=== PATIENT | female | born 1980 | race Caucasian/White ===

== ENCOUNTER 2018-11-02 12:02 | Emergency (ER) | payer OTHER ==
[~2018-11-02] VITALS: Ht 170.2 cm; Wt 90.7 kg
[~2018-11-02 12:02] MED LIST: NORCO 5-325 TA1 EACH PO; PRENATABS RX T1 EACH PO; TYLENOL325 MG PO
[2018-11-02] MEDS ORDERED: VENTOLIN HFA18 GM INH (13:52)
[2018-11-02] MEDS ORDERED: ZITHROMAX250 MG PO (13:52)
== END 2018-11-02 14:05 | disposition home or self-care (01) ==
LOC: ED 12:02
DX: J03.90 Acute tonsillitis, unspecified (principal); J45.909 Unspecified asthma, uncomplicated; F17.200 Nicotine dependence, unspecified, uncomplicated; Z88.0 Allergy status to penicillin
CPT/HCPCS: 99283

== ENCOUNTER 2019-09-26 18:53 | Emergency (ER) | payer OTHER ==
[~2019-09-26] VITALS: Ht 170.2 cm; Wt 90.7 kg
[~2019-09-26 18:53] MED LIST changes: +VENTOLIN HFA18 GM INH; +ZITHROMAX250 MG PO
--- OUTSIDE RECORDS SUMMARY | 2019-09-26 18:56 | XMS ---
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 Care History Medical/Surgical 11/06/2018 [facility] - CHW CONTACTED PCP OFFICE ON 11/06/18- PATIENT HAS NOT BEEN IN CONTACT WITH PCP OFFICE SINCE 09/22/18. - PLEASE CONTACT [facility] MEDICATIONS BEFORE PRESCRIBING REFILL MEDICATIONS. - CHW IS UNABLE TO CONTACT PATIENT DUE TO PHONE NUMBER BEING DISCONNECTED. - Patient is currently established with [facility]. If patient is seen in the ED during business hours. Please contact CHWs at [facility]. Care Recommendation: This patient has had 5 or more Emergency Department visits in the last 12 months.\T\nbsp; Patient requires education on the scope and purpose of the ED as an acute care provider not a Primary Care Provider and should not be utilized for chronic conditions.\T\nbsp; These are guidelines and the provider should exercise clinical judgment when providing care. E.D. VISIT COUNT (12 MO.) 2 [facility] Butt TOTAL 2 NOTE: Visits indicate total known visits. ED/UCC VISIT TRACKING (12 MO.) 09/26/2019 18:54 [facility] Tirado [place] TYPE: Emergency COMPLAINT: - MEDICAL CLEARANCE 11/02/2018 12:02 [facility] [place] TYPE: Emergency COMPLAINT: - DIZZNESS/NAUSEA DIAGNOSES: - Unspecified asthma, uncomplicated - Cough - Allergy status to penicillin - Nicotine dependence, unspecified, uncomplicated - Acute tonsillitis, unspecified INPATIENT VISIT TRACKING (12 MO.) No inpatient visits to display in this time frame [email or web address]
[2019-09-26] MEDS ORDERED: LORATADINE10 MG PO (21:45)
[2019-09-26] MEDS ORDERED: DULOXETINE HCL60 MG PO (21:45)
[2019-09-26] MEDS ORDERED: VITAMIN D310000 UNI1 PO (21:46)
[2019-09-26] MEDS ORDERED: MELOXICAM7.5 MG PO (21:47)
[2019-09-26] MEDS ORDERED: LATUDA40 MG PO (21:49)
[2019-09-26] MEDS ORDERED: HYDROXYZINE HCL50 MG PO (21:52)
[2019-09-26] MEDS ORDERED: CYCLOBENZAPRINE10 MG PO (21:52)
== END 2019-09-27 10:46 | disposition home or self-care (01) ==
LOC: ED 18:53
DX: F43.10 Post-traumatic stress disorder, unspecified (principal); J45.909 Unspecified asthma, uncomplicated; F41.9 Anxiety disorder, unspecified; F32.9 Major depressive disorder, single episode, unspecified; Z88.0 Allergy status to penicillin; Z79.899 Other long term (current) drug therapy
CPT/HCPCS: 80053; 80176; 81001; 84443; 84703; 85025; 99284; G0480

== ENCOUNTER 2019-10-16 16:05 | Emergency (ER) | payer OTHER ==
[~2019-10-16] VITALS: Ht 170.2 cm; Wt 81.7 kg
[~2019-10-16 16:05] MED LIST changes: +CYCLOBENZAPRINE10 MG PO; +DULOXETINE HCL60 MG PO; +HYDROXYZINE HCL50 MG PO; +LATUDA40 MG PO; +LORATADINE10 MG PO; +MELOXICAM7.5 MG PO; +VITAMIN D310000 UNI1 PO
--- OUTSIDE RECORDS SUMMARY | 2019-10-16 16:08 | XMS ---
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 No recent Security Events currently on file CRITERIA MET - [facility] - Has Care Guidelines - [facility] - 2 Visits in 30 Days CARE PROVIDERS REY COPE Physician Wind Technician 09/28/2019-Current CADE PHONE: [phone] MARIA DE JESUS GRUBBS Nurse Practitioner: Women's Health 11/06/2018-Current PHONE: [phone] Guidelines Source: [facility] [facility] Guidelines Date: 10/12/2019 Care Coordination: Currently engaged in mental health services with [employer].\T\nbsp; Please contact [employer] with mental health concerns.\T\nbsp; [place]: [phone]\T\nbsp; [place]: [phone]. Care History Medical/Surgical 11/06/2018 [facility] - CHW CONTACTED PCP OFFICE ON 11/06/18- PATIENT HAS NOT BEEN IN CONTACT WITH PCP OFFICE SINCE 09/22/18. - P[facility] CONTACT [facility] MEDICATIONS BEFORE PRESCRIBING REFILL MEDICATIONS. - CHW IS UNABLE TO CONTACT PATIENT DUE TO PHONE NUMBER BEING DISCONNECTED. - Patient is currently established with [facility]. If patient is seen in the ED during business hours. Please contact CHWs at [facility]. Care Recommendation: This patient has had 5 [...] providing care. E.D. VISIT COUNT (12 MO.) 3 [facility]. TOTAL 3 NOTE: Visits indicate total known visits. 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
== END 2019-10-16 18:59 | disposition short-term general hospital (02) ==
LOC: ED 16:05
DX: F43.10 Post-traumatic stress disorder, unspecified (principal); J45.909 Unspecified asthma, uncomplicated; F41.9 Anxiety disorder, unspecified; D32.9 Benign neoplasm of meninges, unspecified
CPT/HCPCS: 80053; 81001; 84443; 85025; 99285

== ENCOUNTER 2021-06-15 07:25 | Emergency (ER) | payer OTHER ==
[~2021-06-15] VITALS: Ht 170.2 cm; Wt 145.0 kg
[2021-06-15] MEDS ORDERED: BACTRIM DS TAB1 EACH PO (10:13)
[2021-06-15] MEDS ORDERED: METRONIDAZOLE500 MG PO (10:13)
[2021-06-15] MEDS ORDERED: DOXYCYCLINE HY100 MG PO (10:17)
--- NOTE | 2021-06-16 15:07 | EKG ---
[facility] [address] [facility] [place], [place] [address] Signed Normal sinus rhythm Normal ECG No previous ECGs available Confirmed by LYNDA RONQUILLO DO ([id number]) on 06/16/2021 3:07:07 PM Electronically Signed By: LYNDA RONQUILLO DO 06/16/21 1507 PATIENT NAME: ALAN DIAZ Electrocardiogram DATE OF : 80 PHYSICIAN: LYNDA RONQUILLO DO REPORT #: [id number] REPORT IS CONFIDENTIAL AND NOT TO BE RELEASED WITHOUT AUTHORIZATION
== END 2021-06-15 11:13 | disposition home or self-care (01) ==
LOC: ED 07:25
DX: N76.0 Acute vaginitis (principal); N39.0 Urinary tract infection, site not specified; R07.9 Chest pain, unspecified; J45.909 Unspecified asthma, uncomplicated; F43.10 Post-traumatic stress disorder, unspecified; Z88.0 Allergy status to penicillin
CPT/HCPCS: 71046; 76830; 76856; 80053; 81001; 83690; 83735; 84484; 84703; 85025; 87210; 87491; 93005; 93010; 96372; 99285-25; A9270; J0696

== ENCOUNTER 2022-06-10 11:47 | Emergency (ER) | payer OTHER ==
[~2022-06-10] VITALS: Ht 170.2 cm; Wt 79.4 kg
[~2022-06-10 11:47] MED LIST changes: +BACTRIM DS TAB1 EACH PO; +DOXYCYCLINE HY100 MG PO; +METRONIDAZOLE500 MG PO
[2022-06-10] MEDS ORDERED: VENTOLIN HFA18 GM INH (15:12)
--- NOTE | 2022-06-13 20:52 | EKG ---
[facility] [address] [place] [address] Signed Normal sinus rhythm Normal ECG When compared with ECG of 15-JUN-2021 08:22, Questionable change in QRS axis T wave inversion no longer evident in Inferior leads Confirmed by Maxwell Rosario MD () on 06/13/2022 8:52:42 PM Electronically Signed By: MAXWELL ROSARIO MD 06/13/222051 PATIENT NAME: ALAN DIAZ Electrocardiogram DATE OF : 80 PHYSICIAN: MAXWELL ROSARIO MD REPORT #: [id number] REPORT IS CONFIDENTIAL AND NOT TO BE RELEASED WITHOUT AUTHORIZATION
== END 2022-06-12 01:18 | disposition short-term general hospital (02) ==
LOC: ED 11:47
DX: T14.91XA Suicide attempt, initial encounter (principal); F15.10 Other stimulant abuse, uncomplicated; Z20.822 Contact with and (suspected) exposure to COVID-19
CPT/HCPCS: 36415; 72170; 80053; 81001; 84443; 84703; 85025; 87077; 87088; 87186; 87502; 93005; 93010; 96372; 99285-25; C9803; G0480; J1630; J2060; U0003

== ENCOUNTER 2022-09-20 08:41 | Emergency (ER) | payer OTHER ==
[~2022-09-20] VITALS: Ht 170.2 cm; Wt 59.2 kg
[2022-09-20] MEDS ORDERED: IBU600 MG PO (09:06)
[2022-09-20] MEDS ORDERED: ZITHROMAX250 MG PO (09:06)
== END 2022-09-20 09:44 | disposition home or self-care (01) ==
LOC: ED 08:41
DX: K02.9 Dental caries, unspecified (principal); K03.81 Cracked tooth; J45.909 Unspecified asthma, uncomplicated; Z88.0 Allergy status to penicillin; Z79.899 Other long term (current) drug therapy
CPT/HCPCS: 99282; A9270

== ENCOUNTER 2022-11-15 06:03 | Emergency (ER) | payer OTHER ==
[~2022-11-15] VITALS: Ht 170.2 cm; Wt 68.1 kg
[~2022-11-15 06:03] MED LIST changes: +IBU600 MG PO
[2022-11-15] MEDS ORDERED: IBU800 MG PO (07:11)
[2022-11-15] MEDS ORDERED: VENTOLIN HFA18 GM INH (07:11)
[2022-11-15] MEDS ORDERED: CLEOCIN HCL300 MG PO (07:11)
--- NOTE | 2022-11-16 18:51 | EKG ---
[facility] [address] [facility] [place], [place] [address] Signed Normal sinus rhythm Normal ECG When compared with ECG of 11-JUN-2022 14:41, No significant change was found Confirmed by KAREL MEDINA MD ([id number]) on 11/16/2022 6:51:49 PM Electronically Signed By: KAREL MEDINA MD 11/16/221850 PATIENT NAME: ALAN DIAZ Electrocardiogram DATE OF : 80 PHYSICIAN: KAREL MEDINA MD REPORT #: [id number] REPORT IS CONFIDENTIAL AND NOT TO BE RELEASED WITHOUT AUTHORIZATION
== END 2022-11-15 07:36 | disposition home or self-care (01) ==
LOC: ED 06:03
DX: K04.7 Periapical abscess without sinus (principal); F15.10 Other stimulant abuse, uncomplicated; J45.909 Unspecified asthma, uncomplicated; Z59.00 Homelessness unspecified; Z88.0 Allergy status to penicillin; Z79.899 Other long term (current) drug therapy; Z20.822 Contact with and (suspected) exposure to COVID-19
CPT/HCPCS: 36415; 71045; 80053; 83880; 84484; 84703; 85025; 85379; 87502; 93005; 93010; 99284-25; A9270; J7121; U0003

== ENCOUNTER 2023-08-14 21:36 | Observation (INO) | payer OTHER ==
[~2023-08-14] VITALS: Ht 170.2 cm; Wt 60.7 kg
[~2023-08-14 21:36] MED LIST changes: +CLEOCIN HCL300 MG PO; +IBU800 MG PO
[2023-08-14 22:10] LABS: BASOPHILS 0.5 % (0-2); EOSINOPHILS 0.1 % (0-6); HEMATOCRIT 32.2 % (35.0-50.0); HEMOGLOBIN 11.1 g/dL (12.0-18.0); LYMPHOCYTES 10.4 % (24-44); MCH 30.4 (27-36); MCHC 34.3 g/dl (30-36); MCV 88.4 fl (81-99); MONOCYTES 9.3 % (0-12); NEUTROPHILS 79.7 % (39-80); PLATELET COUNT 319 K/uL (140-440); RBC 3.64 M/ul (4.3-5.7); RDW 13.4 (10.5-15.0)
[2023-08-14 22:38] LABS: ALBUMIN 4.9 g/dL (3.4-5.0); ALBUMIN/GLOBULIN RATIO 1.58 (1.1-2.4); ALCOHOL, MEDICAL <3 ng/dL (<3); ALKALINE PHOSPHATASE 63 U/L (46-116); ALT (SGPT) 47 U/L (14-59); ANION GAP 18.3 (7-21); AST (SGOT) 62 U/L (15-37); BILIRUBIN, TOTAL 3.7 ng/dL (0.2-1.0); BUN/CREATININE RATIO 34.61 (6.0-28.6); CALCIUM 9.4 mg/dL (8.5-10.1); CARBON DIOXIDE 26 mmol/L (21-32); CHLORIDE 100 mmol/L (98-107); CREATINE KINASE 1511 U/L (26-192); GLOMERULAR FILTRATION RATE,EST 55 mL/min (>60); POTASSIUM 4.3 mmol/L (3.5-5.1); UREA NITROGEN 45 mg/dL (7-18)
[2023-08-14 22:47] LABS: INFLUENZA B NAA NEGATIVE (NEGATIVE); RESPIRATORY SYNCYTIAL VIR NAA NEGATIVE (NEGATIVE)
--- NOTE | 2023-08-14 23:48 | NUR ---
PATIENT ARRIVED VIA WHEELCHAIR WITH SECURITY AND RODO REEVES E.D. TO ROOM 127, PT IS ALERT, VERY RESTLESS, ANXIOUS, PATIENT TRANSFER TO BED WITH STANDBY ASSIST, PATIENT NOTED TO HAVE POOR COORDINATION. SHE VERBALIZES THAT SHE IS COLD, WARM BLANKETS PROVIDED, SHE VERBALIZED WANTING TO USE THE PHONE, HOWEVER SHE DOES NOT KNOW THE NUMBER TO CALL. SHE VERBALIZED NOT NEEDING TO URINATE AT THIS TIME. SECOND FLUID BOLUS INFUSING NOW FROM E.D., PATIENT VERBALIZED HUNGER, WILL PROVIDE PATIENT WITH FOOD
[2023-08-14 23:59] VITALS: BP 112/83
--- NOTE | 2023-08-15 00:04 | NUR ---
PATIENT HISTORY NOT COMPLETED PATIENT IS A POOR HISTORIAN AT THIS TIME.
--- NOTE | 2023-08-15 00:30 | NUR ---
PATIENT HAS CONSUMED FRUIT, OATMEAL AND SANDWICH BOX. SHE HAS DRANK SPRITE AND HAS WATER AT BEDSIDE, PROVIDED CHAP STICK AND WARM WASH CLOTH. SHE REPORTS NO NAUSEA AT THIS TIME.
--- NOTE | 2023-08-15 01:00 | NUR ---
PATIENT EXITED BED SETTING BED ALARM OFF, STAFF INTO ROOM, PATIENT STQANDING AT BEDSIDE. SHE REPORTS NEED TO URINATE. PT ASSISTED ONE PERSON TO BATHROOM, HAT IN TOILET TO CATCH URINE FOR LAB, PT VOIDED, AND MISSED HAT. SHE REQUIRES MULTIPLE INSTRUCTIONS TO BE DIRECTED FOR TASKS, PATIENT PROVIDED [facility] PANTS, UNDERWARE, AND SOCKS. SHE CONTINUES TO NEED REASSURANCE OF SAFETY AND CARE PLAN. SHE CONTINUES TALK QUIETLY TO HERSELF, NOTED TO BE FORGETFUL, ASKING SAME QUESTION IN SHORT SPANS OF TIME. SHE IS COOPERATIVE WITH CARES AND STAFF AT THIS TIME.
--- NOTE | 2023-08-15 02:05 | NUR ---
PATIENT RESTING QUIETLY IN BED, EYES CLOSED RESPIRATION 16/MIN, NO DISTRESS NOTED, SNORING NOTED.
[2023-08-15 05:16] VITALS: BP 103/74
--- NOTE | 2023-08-15 05:17 | NUR ---
PATIENT ALERT TO VOICE OF STAFF AT BEDSIDE AFTER SEVERAL ATTEMPTS PATIENT OPENED HER EYES, WHEN ASKED IF SHE REMEBERS THIS RN SHE NODDED HER HEAD YES, ASSESSMENT, V/S AND LAB INTO ROOM FOR LAB DRAW. NO NEW CONCERNS, PATIENT COOPERATIVE WITH CARES.
[2023-08-15 05:22] LABS: HEMOGLOBIN 9.6 g/dL (12.0-18.0); MCH 30.7 (27-36)
[2023-08-15 05:25] LABS: BASOPHILS 0.8 % (0-2); EOSINOPHILS 0.7 % (0-6); HEMATOCRIT 27.6 % (35.0-50.0); LYMPHOCYTES 24.7 % (24-44); MCHC 34.7 g/dl (30-36); MCV 88.5 fl (81-99); MONOCYTES 12.3 % (0-12); NEUTROPHILS 61.5 % (39-80); PLATELET COUNT 248 K/uL (140-440); RBC 3.13 M/ul (4.3-5.7); RDW 13.5 (10.5-15.0)
[2023-08-15 05:39] LABS: ALBUMIN 3.4 g/dL (3.4-5.0); ALBUMIN/GLOBULIN RATIO 1.42 (1.1-2.4); ANION GAP 11.5 (7-21); BILIRUBIN, TOTAL 2.7 ng/dL (0.2-1.0); BUN/CREATININE RATIO 30.09 (6.0-28.6); CALCIUM 8.1 mg/dL (8.5-10.1); CREATININE, SERUM 1.03 mg/dL (0.55-1.02); MAGNESIUM 2.1 mg/dL (1.8-2.4); POTASSIUM 3.5 mmol/L (3.5-5.1); PROTEIN, TOTAL 5.8 g/dL (6.4-8.2)
--- NOTE | 2023-08-15 07:15 | NUR ---
REPORT TO JAYLAN REEVES MED/SURG FOR PATIENT TRANSFER OF CARE. PT ALERT AND ORIENTED. BEDSIDE REPORT. PT UP TO BATHROOM IN ROOM 119, HAD BM FORMED, ALSO VOIDED 900ML, URINE SENT TO LAB. PATIENT CONTINUES TO BE EMOTIONALLY LABILE.
--- NOTE | 2023-08-15 07:20 | NUR ---
REPORT FROM SPENCER, CCU NURSE, UPON PATIENT TRANSFER TO MED SURG.
[2023-08-15 07:28] LABS: BILIRUBIN, URINE NEGATIVE (negative); BLOOD/HGB, URINE NEGATIVE (Negative); KETONE, URINE NEGATIVE (Negative); LEUK ESTERASE, URINE NEGATIVE (negative); NITRITE, URINE NEGATIVE (negative)
[2023-08-15 08:36] LABS: AMPHETAMINES, URINE POSITIVE (NEGATIVE); BARBITURATES, URINE NEGATIVE (NEGATIVE); BENZODIAZEPINE, URINE NEGATIVE (NEGATIVE); BUPRENORPHINE, URINE NEGATIVE (NEGATIVE); CANNABINOID, URINE NEGATIVE (NEGATIVE); COCAINE, URINE NEGATIVE (NEGATIVE); ECSTASY, URINE NEGATIVE (NEGATIVE); FENTANYL, URINE NEGATIVE (NEGATIVE); METHADONE, URINE NEGATIVE (NEGATIVE); OPIATES, URINE NEGATIVE (NEGATIVE); OXYCODONE, URINE NEGATIVE (NEGATIVE); PHENCYCLIDINE, URINE NEGATIVE (NEGATIVE)
--- NOTE | 2023-08-15 08:39 | NUR ---
PATIENT UP TO BATHROOM TO , YELLING AND TALKING TO UNSEEN OTHERS. PATIENT YELLED, "I'M LEAVING." NURSE RESTATED THAT PATIENT WANTED TO LEAVE THE HOSPITAL, PATIENT YELLED YES. PATIENT DID SIGN THE AMA PAPER, IV REMOVED FROM LEFT AC. THIS NURSE DID ATTEMPT TO GIVE HER A COPY OF THE PAPER, BUT PATIENT WALKED OUT OF ROOM AND AROUND CORNER.
== END 2023-08-15 06:54 | disposition left against medical advice (07) ==
LOC: ED 21:36 → MS 21:38 → CCU 21:38 → EDBD 21:38 → CCU 21:39 → MS 08-15 06:52 → CCU 08-15 06:52 → MS 08-15 06:54 → CCU 08-15 06:54 → MS 08-15 08:34
PROVIDERS: Internal Medicine; ADMIT Family Medicine; ATTEND Family Medicine
DX: M62.82 Rhabdomyolysis (principal); N17.9 Acute kidney failure, unspecified; T50.901A Poisoning by unspecified drugs, medicaments and biological substances, accidental (unintentional), initial encounter; F22 Delusional disorders; F41.9 Anxiety disorder, unspecified; D64.9 Anemia, unspecified; E80.6 Other disorders of bilirubin metabolism; Z59.00 Homelessness unspecified; Z88.0 Allergy status to penicillin; Z20.822 Contact with and (suspected) exposure to COVID-19
CPT/HCPCS: 36415; 80048; 80053; 80307; 81003; 82553; 83735; 85025; 87502; 96361; 96374; 99284-25; A9270-GY; G0378; G0480; J2060; J7121; U0002

== ENCOUNTER 2023-08-16 03:38 | Emergency (ER) | payer OTHER ==
[~2023-08-16] VITALS: Ht 170.2 cm; Wt 60.3 kg
--- OUTSIDE RECORDS SUMMARY | 2023-08-16 03:40 | XMS ---
PreManage Notification: ALAN DIAZ Security Aviation All Source Intelligence Events No recent Security Events currently on file CRITERIA MET - [facility] - 2 Visits in 30 Days CARE PROVIDERS There are no care providers on record at this time. Alondra has no Care Guidelines for this patient. Shelly VISIT COUNT (12 MO.) 2 [facility] [place] [facility] TOTAL 2 NOTE: Visits indicate total known visits. ED/C VISIT TRACKING (12 MO.) 08/16/2023 03:[address] [facility] TYPE: Emergency COMPLAINT: - SOB 08/14/2023 21:37 [facility] Tirado [place] TYPE: Emergency COMPLAINT: - GENERAL PAIN INPATIENT VISIT TRACKING (12 MO.) 08/14/2023 21:38 KAR[facility] Tirado [place] TYPE: Observation COMPLAINT: - RHABDOMYOLYSIS [id number]
[2023-08-16 04:08] LABS: BASOPHILS 0.5 % (0-2); EOSINOPHILS 0.7 % (0-6); HEMATOCRIT 32.1 % (35.0-50.0); HEMOGLOBIN 10.8 g/dL (12.0-18.0); LYMPHOCYTES 22.1 % (24-44); MCH 30.4 (27-36); MCHC 33.8 g/dl (30-36); MCV 90.1 fl (81-99); NEUTROPHILS 66.7 % (39-80); PLATELET COUNT 300 K/uL (140-440); RBC 3.56 M/ul (4.3-5.7); RDW 13.5 (10.5-15.0)
[2023-08-16 04:28] LABS: ALBUMIN/GLOBULIN RATIO 1.25 (1.1-2.4); ANION GAP 10.4 (7-21); BILIRUBIN, TOTAL 2.1 ng/dL (0.2-1.0); BUN/CREATININE RATIO 25.27 (6.0-28.6); CALCIUM 8.6 mg/dL (8.5-10.1); CREATININE, SERUM 0.91 mg/dL (0.55-1.02); POTASSIUM 3.4 mmol/L (3.5-5.1); PROTEIN, TOTAL 7.2 g/dL (6.4-8.2)
[2023-08-16 08:40] VITALS: BP 122/84
== END 2023-08-16 08:41 | disposition home or self-care (01) ==
LOC: ED 03:38
PROVIDERS: Family Medicine
DX: M62.82 Rhabdomyolysis (principal); Z88.0 Allergy status to penicillin
CPT/HCPCS: 36415; 80053; 82553; 84100; 85025; 99283; J7030

== ENCOUNTER 2023-08-18 05:21 | Emergency (ER) | payer OTHER ==
[~2023-08-18] VITALS: Ht 170.2 cm; Wt 60.3 kg
[2023-08-18 05:59] LABS: BASOPHILS 0.6 % (0-2); EOSINOPHILS 2.4 % (0-6); HEMATOCRIT 35.1 % (35.0-50.0); HEMOGLOBIN 11.8 g/dL (12.0-18.0); LYMPHOCYTES 25.3 % (24-44); MCH 30.4 (27-36); MCHC 33.6 g/dl (30-36); MCV 90.6 fl (81-99); MONOCYTES 8.9 % (0-12); NEUTROPHILS 62.8 % (39-80); PLATELET COUNT 347 K/uL (140-440); RBC 3.88 M/ul (4.3-5.7); RDW 13.6 (10.5-15.0)
[2023-08-18 06:13] LABS: ALBUMIN 3.8 g/dL (3.4-5.0); ALBUMIN/GLOBULIN RATIO 1.06 (1.1-2.4); ANION GAP 13.1 (7-21); BILIRUBIN, TOTAL 1.6 ng/dL (0.2-1.0); BUN/CREATININE RATIO 19.76 (6.0-28.6); CALCIUM 9.1 mg/dL (8.5-10.1); CREATININE, SERUM 0.86 mg/dL (0.55-1.02); POTASSIUM 3.1 mmol/L (3.5-5.1); PROTEIN, TOTAL 7.4 g/dL (6.4-8.2)
[2023-08-18 07:04] VITALS: BP 115/72
== END 2023-08-18 07:05 | disposition home or self-care (01) ==
LOC: ED 05:21
PROVIDERS: Family Medicine
DX: F15.20 Other stimulant dependence, uncomplicated (principal); R74.8 Abnormal levels of other serum enzymes; Z88.0 Allergy status to penicillin
CPT/HCPCS: 36415; 80053; 82553; 85025; 99284; J7030

== ENCOUNTER 2024-06-15 08:22 | Emergency (ER) | payer OTHER ==
[~2024-06-15] VITALS: Ht 170.2 cm; Wt 73.8 kg
[~2024-06-15 08:22] MED LIST changes: +ANTI-FUNGAL POW71 GM TOP
[2024-06-15] MEDS ORDERED: HYDROXYZINE HCL25 MG PO ×2 (08:38→08:55)
[2024-06-15] MEDS ORDERED: DICLOFENAC SODI50 GM (08:39)
[2024-06-15] MEDS ORDERED: VENTOLIN HFA18 GM (08:39)
[2024-06-15] MEDS ORDERED: GABAPENTIN300 MG PO (08:39)
[2024-06-15] MEDS ORDERED: VENTOLIN HFA18 GM INH (08:51)
[2024-06-15] MEDS ORDERED: CLARITIN10 M2 PO (08:51)
[2024-06-15] MEDS ORDERED: LIDODERM1 EACH TOP (08:51)
[2024-06-15 08:54] VITALS: BP 132/97
== END 2024-06-15 08:54 | disposition home or self-care (01) ==
LOC: ED 08:22
DX: Z76.0 Encounter for issue of repeat prescription (principal); Z59.00 Homelessness unspecified; Z88.0 Allergy status to penicillin; Z79.899 Other long term (current) drug therapy
CPT/HCPCS: 99281

== ENCOUNTER 2024-10-28 17:08 | Emergency (ER) | payer OTHER ==
[~2024-10-28] VITALS: Ht 170.2 cm; Wt 76.0 kg
[~2024-10-28 17:08] MED LIST changes: +CLARITIN10 M2 PO; +DICLOFENAC SODI50 GM; +GABAPENTIN300 MG PO; +HYDROXYZINE HCL25 MG PO; +LIDODERM1 EACH TOP; +VENTOLIN HFA18 GM
[2024-10-28] MEDS ORDERED: clindamycin HCL 300 MG HOME.PACK PO ONE (20:15)
[2024-10-28] MEDS ORDERED: BUPIVACAINE 0.25% W/ EPI 30 ML SDV DENTAL PRN (20:15)
[2024-10-28 20:50] VITALS: BP 129/91
== END 2024-10-28 20:50 | disposition home or self-care (01) ==
LOC: ED 17:08
DX: K04.7 Periapical abscess without sinus (principal); Z88.0 Allergy status to penicillin
CPT/HCPCS: 41800; 99282-25